=== PATIENT | female | born 1990 | race Caucasian/White ===

== ENCOUNTER 2020-03-09 02:13 | Emergency (ER) | payer OTHER ==
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
== END 2020-03-09 03:15 | disposition home or self-care (01) ==
LOC: FB.ED 02:13
DX: R42 Dizziness and giddiness (principal); R11.0 Nausea; T41.0X5A Adverse effect of inhaled anesthetics, initial encounter; Z88.1 Allergy status to other antibiotic agents
CPT/HCPCS: 80305-QW; 99284